=== PATIENT | male | born 1995 | race African-American/Black ===

== ENCOUNTER 2022-11-19 14:40 | Emergency (ER) | payer MEDICAID ==
[~2022-11-19] VITALS: Ht 165.1 cm; Wt 70.0 kg
[2022-11-19] MEDS ORDERED: LIDOCAINE HCL 1% 10 MG/ML 10ML VIAL INJ NR (19:15)
[2022-11-19] MEDS ORDERED: LIDOCAINE HCL 1% 20ML VIAL (Pyxis) INJ INFIL ONE (19:15)
[2022-11-19] MEDS ORDERED: IBUPROFEN 600MG TABLET PO ONE (22:30)
[2022-11-19 23:07] VITALS: BP 116/52
[2022-11-20] MEDS ORDERED: IBUP-2029 PO (00:06)
== END 2022-11-20 00:24 | disposition home or self-care (01) ==
LOC: ER 14:59
DX: S61.011A Laceration without foreign body of right thumb without damage to nail, initial encounter (principal); W26.8XXA Contact with other sharp object(s), not elsewhere classified, initial encounter; Y93.89 Activity, other specified; Y92.89 Other specified places as the place of occurrence of the external cause; Y99.8 Other external cause status
CPT/HCPCS: 73130; 99283; J3490; Z7610